=== PATIENT | male | born 1995 | race Caucasian/White ===

== ENCOUNTER 2016-09-02 19:19 | Emergency (ER) | payer OTHER ==
[~2016-09-02] VITALS: Ht 177.8 cm; Wt 70.0 kg
[2016-09-02 19:20] VITALS: BP 111/64; PULSE 70; RESP 16; TEMP 99.2; O2SAT 98
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
[2016-09-02] MEDS ORDERED: CITA10TA4 PO (20:03)
[2016-09-02] MEDS ORDERED: IBUP800T23 PO (20:26)
[2016-09-02] MEDS ORDERED: CYCL5TAB PO (20:26)
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
[2016-09-02 21:11] VITALS: BP 136/74; TEMP 98.5
== END 2016-09-02 21:12 | disposition home or self-care (01) ==
LOC: NEPD 19:19
DX: S13.4XXA Sprain of ligaments of cervical spine, initial encounter (principal); R51 Headache; M54.5 Low back pain; V43.62XA Car passenger injured in collision with other type car in traffic accident, initial encounter; Y93.89 Activity, other specified; Y92.412 Parkway as the place of occurrence of the external cause
CPT/HCPCS: 70450; 72110; 72125; 99284